=== PATIENT | male | born 1940 | race Caucasian/White ===

== ENCOUNTER 2018-10-29 07:54 | Observation (INO) | payer MEDICARE, BC ==
[2018-10-29] MEDS ORDERED: ceFAZolin 1 GM* X ONE DOSE (AddVan) IVPB ×2 (08:00)
[2018-10-29 08:55] LABS: ABS Basophils 0 10^3/ul (0-0.2); ABS Eosinophils 0 10^3/ul (0-0.6); ABS Lymphocytes 1.2 10^3/ul (1.0-4.8); ABS Monocytes 0.6 10^3/ul (0-0.8); ABS Nucleated RBC 0 10^3/ul; Eosinophil % 0.8 %; Hematocrit 46 % (42-52); Hemoglobin 16.5 g/dl (14.0-18.0); Lymphocyte % 20.8 %; Mean Corpuscular HGB Conc 36 g/dl (31-36); Mean Corpuscular Hemoglobin 32 pg (27-31); Mean Corpuscular Volume 90 fL (80-94); Mean Platelet Volume 6.8 fL (7.4-10.4); Nucleated Red Blood Cells % 0.5; Platelet Count 157 10^3/ul (150-450); Red Blood Count 5.11 10^6/ul (4.00-5.40); Red Cell Distribution Width 13 % (10.5-15); White Blood Count 5.8 10^3/ul (3.5-10.8)
[2018-10-29 09:02] LABS: Activated Partial Thrombo Time 29.2 seconds (26.0-36.3); INR 0.94 (0.77-1.02)
[2018-10-29 09:07] LABS: BUN/Creatinine Ratio 18.7 (8-20); Calcium 10.2 mg/dL (8.6-10.3); EGFR Non-African American 80.8 (>60); Potassium 4.2 mmol/L (3.5-5.0)
[2018-10-29] MEDS ORDERED: Diazepam TAB(*) 5 MG ONE (09:09)
[2018-10-29] MEDS ORDERED: Iohexol 300* (CONTRAST) 10 ML SDV ONE (09:39)
[2018-10-29] MEDS ORDERED: Heparin 2 UNITS/ML IVPREMIX* 0 ML IV ONE (09:39)
[2018-10-29] MEDS ORDERED: Lidocaine 1% INJ* 10 MG/ML 30 ML SDV ONE (09:39)
[2018-10-29] MEDS ORDERED: fentaNYL* 50 MCG/ML 2 ML VIAL (100 MCG VIAL) ONE ×2 (09:45→10:24)
[2018-10-29] MEDS ORDERED: Midazolam* 1 MG/ML 10 ML VIAL (10 MG) ONE (09:45)
[2018-10-29] MEDS ORDERED: Flumazenil* 0.1 MG/ML 5 ML MDV ONE (09:45)
[2018-10-29] MEDS ORDERED: Naloxone* 0.4 MG/ML 1 ML VIAL ONE (09:45)
[2018-10-29] MEDS ORDERED: Metoprolol Tartrate IV* 1 MG/ML 5 ML VIAL ONE (10:34)
[2018-10-29] MEDS ORDERED: oxyCODONE/Acetamin 5/325 MG* TAB PO PRN (11:08)
[2018-10-29] MEDS ORDERED: Acetaminophen TAB* 325 MG PO PRN (11:08)
[2018-10-29] MEDS: Metoprolol Succinate XL TAB* 25 MG PO SCH (12:11)
--- NOTE | 2018-10-29 15:05 | OP ---
CC: Dr. Kim; primary care. OPERATIVE REPORT: DATE OF OPERATION: 10/29/18 DATE OF : 42 SURGEON: Bria Francis MD. PRE-OP DIAGNOSIS: Atrial fibrillation with tachy-ravi syndrome. POST-OP DIAGNOSIS: Atrial fibrillation with tachy-ravi syndrome. OPERATIVE PROCEDURE: Single-chamber pacemaker implantation. DESCRIPTION OF PROCEDURE: The patient is right-handed and the left subclavian fossa was prepped and draped in the usual sterile fashion. Indications, risks, and benefits had been discussed in the offi ce and additional discussions were done today in the presence of his and he is amenable to proce eding. After prepping and draping the left subclavian fossa in sterile fashion, a time-out was called. Foll owing this, the patient received a total of 100 mcg of fentanyl, 20 cc of 1% lidocaine, and 9 mg of V ersed. 10 cc of radiopaque dye were injected in the left upper extremity outlining the left axillary and lef t subclavian vein. Following this and his local lidocaine, a 10-blade knife was used and a 2.5 cm in cision was made in the left subclavian fossa. Additional lidocaine was infused inferiorly and medial ly. A teresita was made in the fascia and with great difficulty, a small pocket was fashioned. I had a lot of difficulty the skin from the muscles to form a pocket. The fascia seemed adherent. Once the pocket was made, using a modified Seldinger technique, the left subclavian vein was cannul ated and using fluoroscopic guidance, the guidewire was extended into the right atrium. Using an int roducer technique, the right ventricle lead was guided into the right ventricular apex, actively fixe d in place. Pacing and sensing thresholds were acceptable but not ideal initially; but with time, we re very good. The pocket was copiously irrigated. The lead was sutured to the pocket using 0 silk s utures. Irrigation was again performed. The lead was then attached to the generator, placed in the pocket. Pacing and sensing thresholds were again checked and found to be good. We lined the pocket with Surgicel because the fascia was not uniformly on top of the muscle due to good difficulty making the pocket and additional Surgicel was placed superiorly. The incision was then closed with 2 layer s of resorbable suture, 2-0; followed by 4-0; followed by braxton and external dressings. FINDINGS: The system is a Electronic [employer] MRI compatible system. The pacemaker is a Medtronic model #W3SR01, serial #[id number]. The lead is a Medtronic MRI compatib le model 5076-52, serial #[id number]. R-waves were sensed at 7.2 mV. The ventricular lead impedance was 1319 ohms and the ventricular paci ng threshold was 1.2 volts at 0.5 milliseconds. The patient was hemodynamically stable throughout the procedure. He had some discomfort intermittent ly in the right shoulder from arthritis in addition to left shoulder discomfort; but once adequate an algesia was done, he did well. He was hemodynamically stable throughout the procedure and on transfe r to the floor. ESTIMATED BLOOD LOSS: Less than 5 cc. [id number]/[facility] #: [id number]
[2018-10-29] MEDS: ceFAZolin 1 GM VIAL(*) 1 GM in NS 0.9% 50 ML* 50 ML IVPB SCH ×2 (15:57→23:26)
[2018-10-29] MEDS ORDERED: Terazosin CAP* 1 MG PO SCH (21:00)
[2018-10-30 07:31] VITALS: BP 112/67
[2018-10-30] MEDS: Metoprolol Succinate XL TAB* 25 MG PO SCH (08:18)
[2018-10-30] MEDS: ceFAZolin 1 GM VIAL(*) 1 GM in NS 0.9% 50 ML* 50 ML IVPB SCH (08:18)
[2018-10-30] MEDS ORDERED: MESALAMINE 0.375 GM PO SCH (09:00)
[2018-10-30] MEDS ORDERED: Lisinopril TAB* 10 MG PO SCH (09:00)
[2018-10-30] MEDS ORDERED: CMCS: Budesonide CAP(NF) 3 MG PO SCH (09:00)
--- NOTE | 2018-10-30 13:00 | DS ---
DISCHARGE SUMMARY: DATE OF ADMISSION: 10/29/18 TENTATIVE DATE OF DISCHARGE: 10/30/18 ATTENDING PHYSICIAN: Dr. Kim of Cardiology *(dictated by Lisa Hong NP). ADMITTING DIAGNOSES: 1. Sick sinus syndrome, here for elective single-chamber pacemaker implantation. 2. History of atrial fibrillation, on Eliquis therapy with labile heart rate control. 3. History of long-term anticoagulant use. He is on Eliquis 5 mg p.o. b.i.d., age is less than 80, creatinine is less than 1.5. 4. History of hypertension. Blood pressure controlled on lisinopril therapy. DISCHARGE DIAGNOSES: 1. Sick sinus syndrome status post single-chamber pacemaker implantation by Dr. Bria Francis on 10/29/18. No complications. To follow up with Dr. Francis on 11/07/18 at 10:40 a.m. at the medical office building, restrictions as listed below. Prescription for Keflex therapy was called into [facility] in [place]. 2. History of atrial fibrillation with labile heart rate control. The patient is to resume Eliquis 5 mg p.o. b.i.d. He was initiated on Toprol XL 25 mg a day and is tolerating. 3. History of hypertension. Systolic blood pressure 112 upon discharge. We will continue lisinopril and Toprol therapy. 4. History of long-term anticoagulant use. Eliquis dosing is appropriate given age is less than 80, creatinine is less than 1.5 and CHADS-VASc is greater than 2. PROCEDURES PERFORMED: The patient underwent a single-chamber pacemaker implantation by Dr. Bria Francis on 10/30/18. Prior to having procedure performed, basic blood work was obtained. Pacemaker is Medtronic model number W3SR01, serial number [id number]. The lead is a Medtronic MRI compatible model 5076-52, serial number [id number]. There have been no complications. Please refer to Dr. Francis's procedure note for further information. COURSE OF HOSPITAL STAY: This is a pleasant 78-year-old gentleman who follows with Dr. Kim at our practice due to history of AFib and hypertension. He recently underwent 24-hour Holter monitor which revealed tachy-ravi syndrome with heart rates as low as 28 beats per minute and as high as 140 beats per minute with 3-4 second pauses. He was evaluated on 10/17/[address] Bria Francis and single-chamber pacemaker was recommended and the patient was agreeable. Subsequently, he presented [facility] [place] [facility]/18 for elective single- chamber pacemaker implantation. Prior to having the procedure performed, he had outpatient blood work drawn on 10/29/18, white count was 5.8, hemoglobin 16.5, hematocrit 46, platelets 157. INR 0.94. Sodium 138, potassium 4.2, creatinine 0.91. He underwent the above mentioned procedure. Postprocedure, he was transferred to [address] [place] [address], where he has been monitored on telemetry overnight. He was started on Toprol 25 mg a day given labile heart rate control for AFib. He has been tolerating it well. He denies dizziness, lightheadedness or fatigue. Heart rates today are 85-105. His systolic pressure is a 112, thus up-titration of Toprol will need to be evaluated closely in followup. Chest x-ray was negative for pneumothorax this morning. I personally spoke to Elmo with [facility] and device check thresholds were appropriate today. Given patient is in stable condition, we will discharge the patient home. Left anterior chest site was inspected, there is scant dried blood noted on the 4x4 dressing. Wound edges are well approximated with braxton in situ. There is no evidence of hematoma or inflammation. There are no labs to review for this morning. DISCHARGE DIET: Low cholesterol, low fat. DRIVING: No driving until further directed in followup with Dr. Bria Francis. RESTRICTIONS: The patient is to use left arm sling as directed. He is to not lift more than 10 pounds for 2 weeks. He is to not lift more than 15 pounds for 8 weeks. He is to not lift left arm above shoulder for 2 weeks. He is to not lift left arm above head for 8 weeks. He is to keep the incision clean and dry for 2 weeks. He was instructed that he may only take a sponge bath for the next 48 hours. He is to not soak the wound. He is to change dressing daily and he is to contact our practice or seek medical evaluation if he develops any signs or symptoms of infection such as fever, chills, inflammation, discharge from incision site or swelling. Dr. Kim agreed to the above assessment and plan. LISA HONG, FINANCIAL PROFESSIONAL [id number]/[facility] #: [id number] [facility] HOSPITALDahiana
== END 2018-10-30 10:26 | disposition home or self-care (01) ==
LOC: CHICATH 07:54 → MEDTELE 11:09
PROVIDERS: ADMIT Specialist; ATTEND Specialist
DX: I49.5 Sick sinus syndrome (principal); I48.2 Chronic atrial fibrillation; Z79.01 Long term (current) use of anticoagulants; I10 Essential (primary) hypertension; Z85.46 Personal history of malignant neoplasm of prostate; R42 Dizziness and giddiness; R00.0 Tachycardia, unspecified; R00.1 Bradycardia, unspecified
CPT/HCPCS: 33207; 36415; 71045; 71046; 80048; 84520; 85025; 85610; 85730; 93005; 96365; 96366; 96376; 99156; 99157; A9270-GY; C1786; C1898; G0378; J0690; J1644; J2250; J2310; J3010; J3490